=== PATIENT | female | born 1950 | race Caucasian/White ===

== ENCOUNTER → 2019-02-01 13:45 | Outpatient (CLI) | payer MEDICARE | END | disposition home or self-care (01) | LOC: D.LABREF 13:45 | PROVIDERS: ATTEND Orthopaedic Surgery | DX: M17.12 Unilateral primary osteoarthritis, left knee (principal); Z11.8 Encounter for screening for other infectious and parasitic diseases ==

== ENCOUNTER 2019-02-16 14:50 | Inpatient (IN) | payer MEDICARE ==
[~2019-02-16] VITALS: Ht 170.2 cm; Wt 115.9 kg
[2019-04-18] MEDS ORDERED: SYNTHROID150 MCG PO (13:09)
[2019-04-18] MEDS ORDERED: ZOCOR40 MG PO (13:10)
[2019-04-18] MEDS ORDERED: VITAMIN D31000 UNIT PO (13:10)
[2019-04-18] MEDS ORDERED: ZESTRIL20 MG PO (13:10)
[2019-04-18] MEDS ORDERED: IBANDRONATE SO150 MG PO (13:56)
[2019-04-19 09:38] LABS: BASOPHILS 0.8 % (0-2); EOSINOPHILS 2.5 % (0-7); HEMATOCRIT 43.6 % (36.0-48.0); HEMOGLOBIN 14.2 g/dL (12-16); IMMATURE GRANULOCYTES 0.5 % (0-5); LYMPHOCYTES 30.2 % (15-50); MCH 31.2 pg (26.0-34.0); MCHC 32.6 g/dL (31.0-37.0); MCV 95.8 fL (80.0-100.0); MEAN PLATELET VOLUME 10.2 fL (7.4-10.4); MONOCYTES 6.6 % (2-11); NEUTROPHILS 59.4 % (40-80); PLATELET COUNT 212 10x3/uL (130-400); RBC 4.55 10x6/uL (4.00-5.40); RDW 13.6 % (11.5-14.5); WBC 6.5 10x3/uL (4.8-10.8)
[2019-04-19 09:41] LABS: ANION GAP 13.3 mmol/L (8-16); CALCIUM 8.4 mg/dL (8.5-10.1); CARBON DIOXIDE 24.6 mmol/L (21.0-32.0); POTASSIUM - SERUM 3.9 mmol/L (3.5-5.1)
[2019-04-19 09:49] LABS: APTT 26.9 SECONDS (22.8-39.4); PROTIME 12.7 SECONDS (11.6-15.0)
[2019-04-19 10:30] LABS: APPEARANCE CLEAR (CLEAR); BILIRUBIN NEGATIVE (NEGATIVE); COLOR YELLOW (YELLOW); GLUCOSE NEGATIVE (NEGATIVE); KETONE NEGATIVE (NEGATIVE); NITRITE NEGATIVE (NEGATIVE); PROTEIN TRACE mg/dL (NEGATIVE); SPECIFIC GRAVITY 1.025 (1.005-1.020)
[2019-04-19 10:31] LABS: BACTERIA FEW /hpf (NEGATIVE); EPITHELIAL CELLS OCC /hpf (0-5); MUCUS <1+ /lpf (NONE SEEN); RED CELLS - URINE 0-5 /hpf (0-5); WHITE CELLS - URINE 0-5 /hpf (NEGATIVE)
[2019-04-25] MEDS ORDERED: CIPRO500 MG PO (07:45)
[2019-04-25 07:57] VITALS: BP 155/84; BMI 40.0
[2019-04-25 08:18] LABS: APPEARANCE CLEAR (CLEAR); BACTERIA FEW /hpf (NEGATIVE); BILIRUBIN NEGATIVE (NEGATIVE); COLOR YELLOW (YELLOW); EPITHELIAL CELLS OCC /hpf (0-5); GLUCOSE NEGATIVE (NEGATIVE); KETONE NEGATIVE (NEGATIVE); MUCUS <1+ /lpf (NONE SEEN); NITRITE NEGATIVE (NEGATIVE); PROTEIN NEGATIVE (NEGATIVE); RED CELLS - URINE 0-5 /hpf (0-5); SPECIFIC GRAVITY 1.015 (1.005-1.020); UROBILINOGEN NORMAL (NORMAL); WHITE CELLS - URINE 0-5 /hpf (NEGATIVE)
--- NOTE | 2019-04-25 10:31 | NUR ---
TRAFIC CEPT TO A LATONIA DURING PROCEDURE PLAZMA BLADE USED DURING PROCEDURE AT 6 AND 8
[2019-04-25 12:26] VITALS: BP 115/70
--- NOTE | 2019-04-25 12:41 | NUR ---
RECEIVED PT FROM [facility] PT IS EASILY AWAKENED THEN GOES BACK TO SLEEP, SPOUSE AT BEDSIDE, NO NEEDS VOICED, ASSUME PT CARE
[2019-04-25 14:57] VITALS: BP 115/70; Ht 170.2 cm; Wt 115.9 kg
--- NOTE | 2019-04-25 15:24 | NUR ---
PT STATES SHE HAS PAIN WHEN SHE MOVES, ADMINISTERED PRN NSAID, CONTINUE WITH PLAN OF CARE
--- NOTE | 2019-04-25 18:12 | NUR ---
PT SITTING UP IN BED ON CPM MACHINE, NO NEEDS VOICED, CL IN REACH NO SIGNS OF DISTRERSES STATES NO PAIN, WILL CONTINUE WITH PLAN OF CARE
[2019-04-25 20:00] VITALS: BP 104/59
[2019-04-26] VITALS (7 sets, daily range): BP systolic 90–125; BP diastolic 49–60
[2019-04-26 06:24] LABS: BASOPHILS 0.2 % (0-2); EOSINOPHILS 0.1 % (0-7); HEMATOCRIT 36.8 % (36.0-48.0); HEMOGLOBIN 11.6 g/dL (12-16); IMMATURE GRANULOCYTES 0.2 % (0-5); LYMPHOCYTES 14.8 % (15-50); MCH 30.3 pg (26.0-34.0); MCHC 31.5 g/dL (31.0-37.0); MCV 96.1 fL (80.0-100.0); MEAN PLATELET VOLUME 9.9 fL (7.4-10.4); MONOCYTES 9.5 % (2-11); NEUTROPHILS 75.2 % (40-80); PLATELET COUNT 199 10x3/uL (130-400); RBC 3.83 10x6/uL (4.00-5.40); RDW 13.7 % (11.5-14.5); WBC 11.1 10x3/uL (4.8-10.8)
[2019-04-26 06:37] LABS: ANION GAP 12.7 mmol/L (8-16); CALCIUM 7.9 mg/dL (8.5-10.1); CARBON DIOXIDE 23.4 mmol/L (21.0-32.0); MAGNESIUM - SERUM 2.1 mg/dL (1.8-2.4); POTASSIUM - SERUM 4.1 mmol/L (3.5-5.1)
--- NOTE | 2019-04-26 07:15 | NUR ---
REC'D IN BED AWAKE AND ALERT. RESP EVEN AND UNLABORED WITH NO DISTESS NOTED. CAN EXPRESS NEEDS AND WANTS. NO C/O NOTED OR VOICED. ASSESSMENT COMPLETED. C/L IN REACH AT BEDSIDE.
--- NOTE | 2019-04-26 09:31 | NUR ---
PT WAS MEDICATED WITH OXY 10 MG PER ORDERS FOR C/O KNEE PAIN. C/L IN REACH AT BEDSIDE.
--- NOTE | 2019-04-26 10:39 | NUR ---
L total knee 04/25/19. Prevena dressing is intact and pump functioning. Ortho is managing.
--- NOTE | 2019-04-26 13:58 | NUR ---
I have reviewed this patient and I concur with the Shift Assessment completed by the Licensed Practical Nurse today this shift.
[2019-04-27] VITALS: BP 138/70
[2019-04-27 06:08] LABS: BASOPHILS 0.4 % (0-2); EOSINOPHILS 1.2 % (0-7); IMMATURE GRANULOCYTES 0.2 % (0-5); LYMPHOCYTES 30.6 % (15-50); MCH 30.3 pg (26.0-34.0); MCHC 31.4 g/dL (31.0-37.0); MCV 96.4 fL (80.0-100.0); NEUTROPHILS 58.6 % (40-80); PLATELET COUNT 176 10x3/uL (130-400); RBC 3.63 10x6/uL (4.00-5.40); RDW 13.8 % (11.5-14.5); WBC 8.3 10x3/uL (4.8-10.8)
[2019-04-27 06:31] LABS: ANION GAP 8.7 mmol/L (8-16); CALCIUM 7.7 mg/dL (8.5-10.1); CREATININE - SERUM 1.1 mg/dL (0.6-1.3); MAGNESIUM - SERUM 2.3 mg/dL (1.8-2.4); POTASSIUM - SERUM 3.7 mmol/L (3.5-5.1)
--- NOTE | 2019-04-27 07:30 | NUR ---
REC'D IN BED AWAKE AND ALERT. RESP EVEN AND UNLABORED WITH NO DISTRESS NOTED. CAN EXPRESS NEEDS AND WANTS. NO C/O NOTED AT THIS TIME. ASSSESSMENT COMPLETED. C/L IN REACH AT BEDSIDE.
[2019-04-27] MEDS ORDERED: OXYCODONE HCL5 M1 PO (08:26)
[2019-04-27] MEDS ORDERED: BAYER CHEWABLE81 MG PO (08:26)
[2019-04-27] MEDS ORDERED: VISTARIL50 MG PO (08:26)
[2019-04-27] MEDS ORDERED: SMZ-TMP DS 800-1 TAB PO (08:26)
[2019-04-27 08:46] VITALS: BP 122/58
--- NOTE | 2019-04-27 09:04 | NUR ---
WAS MEDICATED FOR C/O PAIN AT THIS TIME WITH OXY 10 MG PER ORDERS. C/L IN REACH AT BEDSIDE.
--- NOTE | 2019-04-27 09:36 | MORECARE ---
CASE MANAGEMENT DISCHARGE SUMMARY PATIENT: DANE ALLEN UNIT: [id number] ADM DATE: 04/25/19 AGE: 68 : 50 SEX: F ROOM/BED: D.2210 AUTHOR: RODRIGO DOMINGUEZ PHYSICIAN: REFERRING PHYSICIAN: FLO FERRERA DO DATE OF SERVICE: 04/27/19 Discharge Plan Patient Name: DANE ALLEN Facility: [facility]:[place] : 1950 Planned Disposition: Home or Self Care Anticipated Discharge Date: Discharge Date: Expected LOS: Initial Reviewer: [email or web address] Initial Review Date: 04/25/2019 Generated: 04/27/19 10:35 am DCPIA - Discharge Planning Initial Assessment Updated by [email or web address]: Jessica Vazquez on 04/27/19 9:33 am * Is the patient Alert and Oriented? Yes * How many steps to enter\exit or inside your home? * PCP YUE * Pharmacy [address] * Preadmission Environment Home with Family * ADLs Independent * Equipment Bedside Commode Rolling Walker Walker * Other Equipment CPM ICE MACHINE * List name and contact numbers for known caregivers / representatives who currently or will assist patient after discharge: MESHA (SPOUSE) [phone] * Verbal permission to speak to the caregivers and representatives has been obtained from the patient. Yes * Community resources currently utilized None * Additional services required to return to the preadmission environment? No * Can the patient safely return to the preadmission environment? Yes * Has this patient been hospitalized within the prior 30 days at any hospital? No External Providers External Provider: [facility] Next Contact Date: Service Request Date: Service Type: Resolution: Reviewer: Comments: Patient Name: DANE ALLEN Page [phone] at 0936 All edits/amendments must be made on the electronic document DICTATION DATE: 04/27/19934 CHOIR ACCOMPANIST: SHAYNE 04/27/19934 RPT#: [id number] DC DATE: STATUS: ADM IN [facility] [address] [place] [address] END OF REPORT
--- NOTE | 2019-04-27 09:44 | MORECARE ---
CASE MANAGEMENT DISCHARGE SUMMARY PATIENT: DANE ALLEN UNIT: [id number] ADM DATE: 04/25/19 AGE: 68 : 50 SEX: F ROOM/BED: D.2210 AUTHOR: RODRIGO DOMINGUEZ PHYSICIAN: REFERRING PHYSICIAN: FLO FERRERA DO DATE OF SERVICE: 04/27/19 Discharge Plan Patient Name: DANE ALLEN Facility: [facility]:[place] : 1950 Planned Disposition: Home or Self Care Anticipated Discharge Date: Discharge Date: Expected LOS: Initial Reviewer: [email or web address] Initial Review Date: 04/25/2019 Generated: 04/27/19 10:43 am Comments DCP- Discharge Planning Updated by [email or web address]: Jessica Vazquez on 04/27/19 8:[address] Patient Name: DANE ALLEN Admission Status: Urgent Accout number: [id number] Admission Date: 04-25-2019 : 1950 Admission Diagnosis: Attending: FLO FERRERA Current LOS: 2 Anticipated DC Date: Planned Disposition: Home or Self Care Primary Insurance: MEDICARE A & B Discharge Planning Comments: CM met with patient to complete initial dc planning assessment. CM educated patient on the CM role and verbal consent given by patient to complete assessment. Patient lives at home with her spouse where she is independent with her care. At discharge patient plans to return home and feels this is a safe discharge. CM discussed availability of home health, rehab services, and medical equipment. She has already set up her OP PT at [facility] in [facility]. I called to verify the appointment and she starts tomorrow at 9:45 am. I spoke with Rajiv @ [facility] and faxed an order to her. Patient will also receive an order for PT in her DC packet. Patient has all DME needed that was set up by Dr Sanchez office. [employer] has delivered a CPM, walker, BSC, and Ice Machine. Patient denied known discharge needs at this time. Her is at the bedside and will drive her home today. CM will continue to follow and will assist as needed with dc plans/needs. Legal Support Analyst: Jessica Vazquez DCPIA - Discharge Planning Initial Assessment Updated by [email or web address]: Jessica Vazquez on 04/27/19 9:33 am * Is the patient Alert and Oriented? Yes * How many steps to enter\exit or inside your home? * PCP YUE * Pharmacy [facility] * Preadmission Environment Home with Family * ADLs Independent * Equipment Bedside Commode Rolling Walker Walker * Other Equipment CPM ICE MACHINE * List name and contact numbers for known caregivers / representatives who currently or will assist patient after discharge: MESHA (SPOUSE) [phone] * Verbal permission to speak to the caregivers and representatives has been obtained from the patient. Yes * Community resources currently utilized None * Additional services required to return to the preadmission environment? No * Can the patient safely return to the preadmission environment? Yes * Has this patient been hospitalized within the prior 30 days at any hospital? No Last DP export: 04/27/19 8:36 Patient Name: DANE ALLEN Page 33864 at 0944 All edits/amendments must be made on the electronic document DICTATION DATE: 04/27/19942 LOG RAFTER: SHAYNE 04/27/19942 RPT#: [id number] DC DATE: STATUS: ADM IN [facility] [address] [place] [address] END OF REPORT
--- NOTE | 2019-04-27 11:41 | NUR ---
WAS BLADDER SCAN AT THIS TIME WITH RESULTS OF 286 ML NOTED. HAVE ORDERS TO PLACE ARROYO CATH IF GREATER THAN 150 ML. PT IS REFUSING TO HAVE ARROYO PLACED. CALL PLACE TO ONCALL. C/L IN REACH AT BEDSIDE.
--- NOTE | 2019-04-27 11:42 | NUR ---
Prevena dressing in place on left knee. Transferred Ulta pump for Prevena pump for home use. Instructions provided on troubleshooting alarms. Spouse voiced understanding. Pt tolerated well.
--- NOTE | 2019-04-27 11:47 | NUR ---
DC HOME AT THIS TIME WITH PREVA WOUND VAC IN USE. NO C/O NOTED OR VOICED. VOICE UNDERSTANDING OF DC ORDERS. IV DC WITH TIP INTACT. STABLE CONDITION DEPARTURE.
[2019-04-27 12:16] LABS: APPEARANCE CLEAR (CLEAR); BILIRUBIN NEGATIVE (NEGATIVE); COLOR YELLOW (YELLOW); GLUCOSE NEGATIVE (NEGATIVE); KETONE NEGATIVE (NEGATIVE); NITRITE NEGATIVE (NEGATIVE); PROTEIN NEGATIVE (NEGATIVE); UROBILINOGEN NORMAL (NORMAL)
--- NOTE | 2019-04-28 15:58 | MORECARE ---
CASE MANAGEMENT DISCHARGE SUMMARY PATIENT: DANE ALLEN UNIT: [id number] ADM DATE: 04/25/19 AGE: 68 : 50 SEX: F ROOM/BED: D.2210 AUTHOR: RODRIGO DOMINGUEZ PHYSICIAN: REFERRING PHYSICIAN: FLO FERRERA DO DATE OF SERVICE: 04/28/19 Discharge Plan Patient Name: DANE ALLEN Facility: [facility]:[place] : 1950 Planned Disposition: Home or Self Care Anticipated Discharge Date: Discharge Date: 04/27/2019 Expected LOS: Initial Reviewer: [email or web address] Initial Review Date: 04/25/2019 Generated: 04/28/19 4:57 pm Comments DCP- Discharge Planning Updated by [email or web address]: Jessica Vazquez on 04/27/19 8:[address] Patient Name: DANE ALLEN Admission Status: Urgent Accout number: [id number] Admission Date: 04-25-2019 : 1950 Admission Diagnosis: Attending: FLO FERRERA Current LOS: 2 Anticipated DC Date: Planned Disposition: Home or Self Care Primary Insurance: MEDICARE A & B Discharge Planning Comments: CM met with patient to complete initial dc planning assessment. CM educated patient on the CM role and verbal consent given by patient to complete assessment. Patient lives at home with her spouse where she is independent with her care. At discharge patient plans to return home and feels this is a safe discharge. CM discussed availability of home health, rehab services, and medical equipment. She has already set up her OP PT at [facility]. I called to verify the appointment and she starts tomorrow at 9:45 am. I spoke with Rajiv @ [facility] and faxed an order to her. Patient will also receive an order for PT in her DC packet. Patient has all DME needed that was set up by Dr Sanchez office. [employer] has delivered a CPM, walker, BSC, and Ice Machine. Patient denied known discharge needs at this time. Her is at the bedside and will drive her home today. CM will continue to follow and will assist as needed with dc plans/needs. Injection Molding Machine Setter: Jessica Vazquez DCPIA - Discharge Planning Initial Assessment Updated by [email or web address]: Jessica Vazquez on 04/27/19 9:33 am * Is the patient Alert and Oriented? Yes * How many steps to enter\exit or inside your home? * PCP YUE * Pharmacy [address] * Preadmission Environment Home with Family * ADLs Independent * Equipment Bedside Commode Rolling Walker Walker * Other Equipment CPM ICE MACHINE * List name and contact numbers for known caregivers / representatives who currently or will assist patient after discharge: MESHA (SPOUSE) [phone] * Verbal permission to speak to the caregivers and representatives has been obtained from the patient. Yes * Community resources currently utilized None * Additional services required to return to the preadmission environment? No * Can the patient safely return to the preadmission environment? Yes * Has this patient been hospitalized within the prior 30 days at any hospital? No Last DP export: 04/27/19 8:44 Patient Name: DANE ALLEN Page 30202 at 1558 All edits/amendments must be made on the electronic document DICTATION DATE: 04/28/191556 MEDICAL RECORDS SECRETARY: SHAYNE 04/28/191556 RPT#: [id number] SC DATE:04/27/19 STATUS: DIS IN [facility] [address] [place] [address] END OF REPORT
--- NOTE | 2019-05-15 16:31 | OP ---
PATIENT NAME: DANE CALLEJAS MEDICAL RECORD: [id number] :[birth year] LOCATION:D.MS [id number] ADMISSION DATE:04/25/19 SURGEON: EDER FERRERA DO DATE OF OPERATION: 04/25/2019 PROCEDURE PERFORMED: Left total knee arthroplasty. PREOPERATIVE DIAGNOSIS: Left knee osteoarthritis. POSTOPERATIVE DIAGNOSIS: Left knee osteoarthritis. INDICATIONS: Ms. Callejas is a 68-year-old female who has tried all manner of nonoperative treatment including injections and physical therapy for her left knee osteoarthritis to no avail. She was tired of dealing with the pain and it affecting her activities of daily living. When she got to the point where she could not deal with it any longer, she wanted her knee replaced. I informed her of the risks including infection, bleeding, damage to nerves and vessels, need for further surgery, failure of implant, blood clots, and even and fracture. She signed the consent. SURGEON: Eder Ferrera DO DESCRIPTION OF PROCEDURE: The patient received an adductor canal block and obturator block in the preoperative area by anesthesia. She was given 2 grams of Ancef and 80 mg of gentamicin preoperatively. The patient was then taken to the operative suite, laid in the supine position, given general anesthetic and LMA was placed. The left lower extremity was then prepped and draped in sterile fashion. Timeout was performed, everyone was in agreement with the correct side, site, patient and procedure. The procedure then began after marking out the incision and covering with Ioban on the knee. With a 10-blade scalpel, I incised down to the capsule. The knee joint was entered through the capsule via medial parapatellar approach and the fat pad was partially removed. The patella was milled down for an implant and then the knee was flexed up. The femoral canal was entered and the distal femur guide was put in the canal and cut. The bone was removed and the tibia was exposed. The proximal tibia was then cut and menisci were removed. Any bleeding was coagulated with Aquamantys throughout the procedure. She did receive a gram of TXA preoperatively. After the distal femur and proximal tibia were cut, the 10 extension block was put in and fit well. The knee was then flexed up and the femur was sized to be a 70. A 4-in-1 cutting block was then put on and the chamfer cuts were made as well as the other cuts. The bone was removed. The trial was put on and then the tibia was floated in and ranged. Rotation was marked. Then, the patella was drilled as well as lug holes in the femur and this was removed. The tibia was then prepped, sized and sized to be 75. It was drilled and punched and extra holes were put in the tibia for the cement. Cement was then mixed and the femur was irrigated. Cement was then put into the tibia and on the implant, it was impacted into place. Excess cement was removed. The femur was then impacted on and the 12 poly was put in between and then brought to extension. The patella was then cleaned off and dried and cement was placed in the holes and on the patella and on the patellar implant. The squeezer was then put on, excess cement was removed, held the patella in place while it hardened. Throughout the hardening process, the knee was irrigated with normal saline. Then, the 12 poly was trialled and seen to fit very well, 12 E poly anterior stabilized, was put in and locked into place. The knee was ranged was very stable in flexion and extension to medial and lateral stress. The knee was then soaked with Betadine OPERATIVE REPORT [id number] DANE CALLEJAS solution 500 mL of normal saline and 17 fluid ounces of Betadine, 10% povidone with iodine was placed and it sat for 3 minutes. This was then irrigated out with over a liter of normal saline. Then, Inga and vancomycin and tobramycin powder were placed in. The knee was then flexed up and a #2 Ethibond was used to close the capsule in nlupdi-dw-rhzav fashion. The skin was then closed with 2-0 Vicryl in inverted interrupted fashion and 4-0 Monocryl was ran on the skin. Prevena plus was then placed on the skin by Francisco Carmen APRN. She was given a second gram of TXA prior to moving from the OR. She was awakened and taken to recovery in stable condition. Blood loss 200 mL. COMPLICATIONS: None. TRANSINT:[id number] Voice Confirmation ID: [id number] DOCUMENT ID: [id number] 05/15/19 Edited for yasmeen Mcelroy. EDER FERRERA DO at 1631 CC: [id number] DICTATION DATE: 04/25/19 1104 AUDIT OFFICER: 04/25/19 1141 DIS IN 04/27/19 [facility] [address] [place] [address]
== END 2019-04-27 11:53 | disposition home or self-care (01) | DRG 470 ==
LOC: D.SDCHOLD 04-25 06:46 → D.MS 04-25 11:56
PROVIDERS: Family Medicine; ADMIT Orthopaedic Surgery; ATTEND Orthopaedic Surgery
PROC: 0SRD0J9 Replacement of Left Knee Joint with Synthetic Substitute, Cemented, Open Approach (ICD-10-PCS; principal; 2019-04-25 09:00)
DX: M17.12 Unilateral primary osteoarthritis, left knee (principal); E03.9 Hypothyroidism, unspecified; I10 Essential (primary) hypertension; E78.5 Hyperlipidemia, unspecified

== ENCOUNTER 2019-06-03 22:27 | Observation (INO) | payer MEDICARE ==
[~2019-06-03] VITALS: Ht 170.2 cm; Wt 120.5 kg
--- NOTE | ~2019-06-03 | EC ---
PATIENT:DANE ALLEN DATE OF SERVICE: 06/04/19 SEX: F MEDICAL RECORD: [id number] DATE OF : [birth year] LOCATION:D.MS [place] AGE OF PATIENT: 68 ADMISSION DATE: 06/04/19 REFERRING PHYSICIAN: INTERPRETING PHYSICIAN: JEANNE PINO MD ECHOCARDIOGRAM REPORT ECHO CHARGES 4 ECHO COMPLETE Date: 06/05/19 CLINICAL DIAGNOSIS: PRESYNCOPE ECHOCARDIOGRAPHIC MEASUREMENTS (adult normal given) AC root (d.<3.7cm) 2.6 cm LV Septum d (<1.2 cm> 1.1 cm Valve Excursion 1.8 cm LV Septum (systole) 1.4 cm Left Atria (s.<4.0cm> 3.9 cm LVPW d(<1.2cm) 1.1 cm RV (d.<2.3cm) 3.7 cm LVPW (sytole) 1.4 cm LV diastole(<5.6CM) 4.8 cm MV E-F(>70mm/sec) cm LV systole 3.4 cm LVOT Diameter 1.9 cm MV exc.(>10mm) cm Est.ejection fraction (50-75%) % DOPPLER: LVIT cm/sec A 82 cm/sec E 63 cm/sec LA cm/sec RVSP 20.4 mmHg LVOT 137 cm/sec AOP1/2T m/s Asc. Ao 152 cm/sec RVOT 99 cm/sec RA cm/sec PA 155 cm/sec AV Gradient Peak 9.2 mmHg AV Mean 6.4 mmHg AV Area 2.4 cm MV Gradient Peak 3.2 mmHg MV Mean 1.5 mmHg MV Area cm COMMENTS: Teleprinter: Sudhakar COTAKARSON ESTER Spindle Maker: 1 Dr. Pino TAPE# PACS Pericardial Effusion N DATE OF SERVICE: ECHOCARDIOGRAM FINDINGS: 1. Left ventricular chamber size is within normal limits. Left ventricular systolic function is normal. Overall ejection fraction estimated at 55%. 2. Left atrium, right atrium, and right ventricle chamber sizes are within normal limits. 3. Valvular structures have normal structure and motion. ECHOCARDIOGRAM REPORT [id number] DANE ALLEN 4. Doppler interrogation reveals no significant valvular insufficiency or stenosis. 5. No evidence of pericardial effusion or left ventricular thrombus. TRANSINT:[id number] Voice Confirmation ID: [id number] DOCUMENT ID: [id number] JEANNE PINO MD CC: [id number] DICTATION DATE: 06/06/19 1014 SEWING MACHINIST: 06/06/19 1259 DIS IN 06/05/19 [facility] [address] [place] [id number]
[~2019-06-03 22:27] MED LIST: BAYER CHEWABLE81 MG PO; CIPRO500 MG PO; IBANDRONATE SO150 MG PO; OXYCODONE HCL5 M1 PO; SMZ-TMP DS 800-1 TAB PO; SYNTHROID150 MCG PO; VISTARIL50 MG PO; VITAMIN D31000 UNIT PO; ZESTRIL20 MG PO; ZOCOR40 MG PO
--- NOTE | 2019-06-03 22:53 | NUR ---
PT LEFT ED VIA STRETCHER FOR CT.
--- NOTE | 2019-06-03 23:00 | NUR ---
PT RETURNED FROM CT VIA STRETCHER.
[2019-06-03 23:24] LABS: BASOPHILS 0.2 % (0-2); EOSINOPHILS 0.8 % (0-7); HEMATOCRIT 41.3 % (36.0-48.0); HEMOGLOBIN 13.6 g/dL (12-16); IMMATURE GRANULOCYTES 0.5 % (0-5); LYMPHOCYTES 13.1 % (15-50); MCHC 32.9 g/dL (31.0-37.0); MCV 91.2 fL (80.0-100.0); MEAN PLATELET VOLUME 9.8 fL (7.4-10.4); MONOCYTES 5.3 % (2-11); NEUTROPHILS 80.1 % (40-80); RBC 4.53 10x6/uL (4.00-5.40); RDW 13.3 % (11.5-14.5); WBC 18.5 10x3/uL (4.8-10.8)
[2019-06-03 23:30] LABS: PLATELET COUNT 281 10x3/uL (130-400)
[2019-06-03 23:35] LABS: ANION GAP 20.7 mmol/L (8-16); CARBON DIOXIDE 21.4 mmol/L (21.0-32.0); CREATININE - SERUM 1.2 mg/dL (0.6-1.3); POTASSIUM - SERUM 4.1 mmol/L (3.5-5.1)
[2019-06-03 23:42] LABS: BILIRUBIN - TOTAL 0.32 mg/dL (0.2-1.3); PROTEIN - SERUM 7.4 g/dL (6.4-8.2)
--- NOTE | 2019-06-04 00:32 | NUR ---
PT RESTING ON BED. NO S/S OF ACUTE DISTRESS NOTED.
[2019-06-04 00:47] LABS: APPEARANCE CLEAR (CLEAR); BILIRUBIN NEGATIVE (NEGATIVE); COLOR YELLOW (YELLOW); GLUCOSE 100 mg/dL (NEGATIVE); KETONE NEGATIVE (NEGATIVE); NITRITE NEGATIVE (NEGATIVE); PROTEIN NEGATIVE (NEGATIVE); UROBILINOGEN NORMAL (NORMAL)
[2019-06-04 01:05] LABS: UDS - AMPHET NEGATIVE QUAL (NEGATIVE); UDS - BARB NEGATIVE QUAL (NEGATIVE); UDS - BENZO NEGATIVE QUAL (NEGATIVE); UDS - COCAINE NEGATIVE QUAL (NEGATIVE); UDS - OPIATE NEGATIVE QUAL (NEGATIVE); UDS - PCP NEGATIVE QUAL (NEGATIVE); UDS - THC NEGATIVE QUAL (NEGATIVE)
--- NOTE | 2019-06-04 01:55 | NUR ---
PT AND SPOUSE UPDATED ON PLAN OF CARE.
[2019-06-04 02:52] VITALS: BP 150/71; Ht 170.2 cm; Wt 120.5 kg
[2019-06-04 05:30] VITALS: BP 150/71
[2019-06-04 12:20] VITALS: BP 103/48
[2019-06-04 16:12] VITALS: BP 134/67
[2019-06-04 16:14] LABS: BASOPHILS 0.3 % (0-2); HEMATOCRIT 38.5 % (36.0-48.0); HEMOGLOBIN 12.3 g/dL (12-16); IMMATURE GRANULOCYTES 0.3 % (0-5); LYMPHOCYTES 19.4 % (15-50); MCH 29.5 pg (26.0-34.0); MCHC 31.9 g/dL (31.0-37.0); MCV 92.3 fL (80.0-100.0); MEAN PLATELET VOLUME 9.2 fL (7.4-10.4); MONOCYTES 8.4 % (2-11); NEUTROPHILS 70.6 % (40-80); RBC 4.17 10x6/uL (4.00-5.40); RDW 13.7 % (11.5-14.5)
[2019-06-04 16:15] LABS: PLATELET COUNT 217 10x3/uL (130-400); WBC 10.1 10x3/uL (4.8-10.8)
[2019-06-04 16:34] LABS: ANION GAP 13.3 mmol/L (8-16); CALCIUM 8.5 mg/dL (8.5-10.1); CARBON DIOXIDE 25.8 mmol/L (21.0-32.0); CREATININE - SERUM 0.9 mg/dL (0.6-1.3); MAGNESIUM - SERUM 2.3 mg/dL (1.8-2.4); POTASSIUM - SERUM 4.1 mmol/L (3.5-5.1)
--- NOTE | 2019-06-04 19:15 | NUR ---
ALERT AND ORIENTED. HAS RT AC IV THAT IS SALINE LOCKED. LEFT FOREARM IV THAT IS SALINE LOCKED WELL. DENIES PAIN. DENIES DISCOMFORT. FRESH RED SCAR TO THE LEFT KNEE THAT IS HEALING WELL. PATIENT DENIES FURTHER ISSUES AT THIS TIME. WEARING SCD'S ORDERS. CALL LIGHT IN REACH. CPOC.
[2019-06-04 19:30] VITALS: BP 112/56
[2019-06-05 00:30] VITALS: BP 105/62
--- NOTE | 2019-06-05 00:58 | NUR ---
RESTING COMFORTABLY. NO SIGNS OR SYMPTOMS OF DISTRESS AT THIS TIME. CPOC
--- NOTE | 2019-06-05 02:10 | NUR ---
I have reviewed this patient and I concur with the Shift Assessment completed by the Licensed Practical Nurse today this shift.
[2019-06-05 05:31] VITALS: BP 119/67
[2019-06-05 06:50] LABS: BASOPHILS 0.6 % (0-2); EOSINOPHILS 2.3 % (0-7); HEMATOCRIT 37.9 % (36.0-48.0); HEMOGLOBIN 11.9 g/dL (12-16); IMMATURE GRANULOCYTES 0.5 % (0-5); LYMPHOCYTES 35.2 % (15-50); MCH 29.3 pg (26.0-34.0); MCHC 31.4 g/dL (31.0-37.0); MCV 93.3 fL (80.0-100.0); MEAN PLATELET VOLUME 9.4 fL (7.4-10.4); NEUTROPHILS 53.4 % (40-80); PLATELET COUNT 224 10x3/uL (130-400); RBC 4.06 10x6/uL (4.00-5.40); RDW 14.1 % (11.5-14.5)
--- NOTE | 2019-06-05 07:05 | NUR ---
ALERT AND ORIENTED, RESTING IN BED. NO C/O PAIN. NO S/S OF ACUTE DISTRESS NOTED. UP AD VERNON. SCDS. IV TO LEFT FOREARM, SL. SITE PATENT WITHOUT REDNESS OR SWELLING. DISCONTINUED IV TO RIGHT AC, CATHETER TIP INTACT D/T LEAKING. ON TELEMETRY 72 SR. DENIES ANY NEEDS AT THIS TIME. CALL LIGHT IN REACH. WILL CONTINUE TO MONITOR.
[2019-06-05 07:06] LABS: CALC OSMOLALITY 277 mosm/kg (275-300); CALCIUM 7.9 mg/dL (8.5-10.1); CARBON DIOXIDE 25.2 mmol/L (21.0-32.0); CHLORIDE - SERUM 105 mmol/L (98-107); CREATININE - SERUM 0.9 mg/dL (0.6-1.3); GLUCOSE 89 mg/dL (74-106); MAGNESIUM - SERUM 2.3 mg/dL (1.8-2.4); POTASSIUM - SERUM 4.2 mmol/L (3.5-5.1); SODIUM 140 mmol/L (136-145); UREA NITROGEN 12 mg/dL (7-18); eGFR NON AFRICAN AMERICAN 66 mL/min (90-120)
[2019-06-05 07:08] LABS: C-REACTIVE PROTEIN < 0.2 mg/dL (0.0-0.9)
[2019-06-05 07:10] LABS: WBC 6.7 10x3/uL (4.8-10.8)
[2019-06-05 08:18] LABS: ERYTHROCYTE SEDIMENTATION RATE 5 mm/hr (0-30)
[2019-06-05 08:25] VITALS: BP 106/70
[2019-06-05 13:07] VITALS: BP 127/67
[2019-06-05 16:40] VITALS: BP 119/64
--- NOTE | 2019-06-05 18:22 | NUR ---
I have reviewed this patient and I concur with the Shift Assessment completed by the Licensed Practical Nurse today this shift.
--- NOTE | 2019-06-05 18:26 | NUR ---
DISCHARGED PATIENT HOME VIA WHEELCHAIR, ACCOMPANIED BY SPOUSE. DISCONTINUED IV, CATHETER TIP INTACT. WENT OVER DISCHARGE INSTRUCTIONS WITH PATIENT, VERBALIZED UNDERSTANDING OF INSTRUCTIONS. DENIES ANYTHING FURTHER.
== END 2019-06-05 18:27 | disposition home or self-care (01) ==
LOC: D.ER 22:27 → OBSVTIME 06-04 00:29 → D.MS 06-04 00:29 → D.SDCHOLD 06-05 15:18 → D.MS 06-05 18:27
PROVIDERS: Family Medicine; ADMIT Internal Medicine Nephrology; ATTEND Internal Medicine Nephrology
DX: R55 Syncope and collapse (principal); E03.9 Hypothyroidism, unspecified; I10 Essential (primary) hypertension; E78.5 Hyperlipidemia, unspecified; M19.90 Unspecified osteoarthritis, unspecified site; M85.80 Other specified disorders of bone density and structure, unspecified site; R73.9 Hyperglycemia, unspecified; Z96.652 Presence of left artificial knee joint; D72.829 Elevated white blood cell count, unspecified